=== PATIENT | male | born 1970 | race Caucasian/White ===

== ENCOUNTER 2022-05-24 09:53 | Emergency (ER) | payer BC, SELFPAY ==
--- NOTE | ~2022-05-24 | US_ITS ---
EXAMINATION: US venous doppler [facility] DATE: 05/24/2022 16:04 INDICATION: Bilateral lower limb pain TECHNIQUE: Diaz scale images without and with compression and Doppler images of the bilateral lower e xtremity veins were obtained. COMPARISON: None FINDINGS: The right common femoral vein, profunda femoral vein, femoral vein, popliteal vein, peroneal trunk, p osterior tibial veins, and greater saphenous vein are patent. The left common femoral vein, profunda femoral vein, femoral vein, popliteal vein, peroneal trunk, po sterior tibial veins, and greater saphenous vein are patent. IMPRESSION: 1. Patent bilateral lower extremity veins. No evidence of deep venous thrombosis. Reviewed, dictated and finalized at location F. IMPRESSION: 1. Patent bilateral lower extremity veins. No evidence of deep venous thrombosi s.
--- NOTE | ~2022-05-24 | CT_ITS ---
EXAMINATION: CTA chest PE protocol DATE: 05/24/2022 14:43 INDICATION: Shortness of breath TECHNIQUE: Computed tomography angiography (CTA) of the chest was performed with 100 mL Omnipaque-350 intravenous contrast timed to evaluate the pulmonary arteries. Coronal maximum intensity projection 3D-reconstructions were created by the technologist. The dose-length product (DLP) was 656.93 mGy-cm. Automated exposure control and iterative reconstruction technique were employed. COMPARISON: None. FINDINGS: The pulmonary arteries are well-opacified. No pulmonary embolism is identified. There is mi ld atelectasis in the right middle lobe and lingula. No pleural effusion or pneumothorax. No patholog ically enlarged thoracic lymph nodes are identified. The heart size is normal. There is mild thoracic spondylosis. IMPRESSION: 1. No pulmonary embolism. 2. Mild atelectasis in the lingula and right middle lobe. Reviewed, dictated and finalized at location F.
--- NOTE | ~2022-05-24 | XR_ITS ---
EXAMINATION: XR chest 2V DATE: 05/24/2022 11:35 INDICATION: One week of cough TECHNIQUE: PA and lateral views of the chest were obtained. COMPARISON: Chest radiograph dated 03/23/2011 FINDINGS: The lungs remain clear with no focal airspace opacities, pulmonary edema, pleural effusion or pneumot horax. The cardiomediastinal silhouette is normal. Chronic mild anterior wedging of a few mid and low er thoracic vertebral bodies. IMPRESSION: 1. No acute cardiopulmonary disease. Reviewed, dictated and finalized at location A.
[2022-05-24 09:56] VITALS: BP 104/52; PULSE 87; RESP 14; TEMP 36.4; O2SAT 98
[2022-05-24 11:03] VITALS: BP 104/52; PULSE 87; RESP 18; TEMP 36.4
--- NOTE | 2022-05-24 12:08 | ED.URI ---
HPI - URI/Sore Throat General Chief Complaint: Upper Respiratory Infection Stated Complaint: Cough, sinus problems. Time Seen by Provider: 05/24/22 11:12 History of Present Illness HPI Narrative: Patient is a 52-year-old male here for evaluation of upper respiratory infectious type symptoms for the past week. Patient states that he has been coughing, has had a sore throat, and developed some shortness of breath today. He denies any respiratory history. He has not yet taken a COVID test. No fevers, chills, nausea, vomiting, leg swelling. He has a history of restless leg syndrome and anxiety, recently started clonidine for restless leg. Related Data Home Medications Medication Instructions Recorded Confirmed psyllium husk 3.4 gram/5.4 gram 1 tbsp PO BID 07/03/19 01/10/20 oral powder (Metamucil) magnesium oxide 400 mg PO DAILY 12/13/19 01/10/20 famotidine 40 mg tablet (Pepcid) 40 mg PO DAILY 01/10/20 01/10/20 omeprazole 40 mg capsule,delayed 40 mg PO DAILY 01/10/20 01/10/20 release paroxetine HCl 20 mg tablet (Paxil) 20 mg PO DAILY 01/10/20 01/10/20 Allergies Allergy/AdvReac Type Severity Reaction Status Date / Time No Known Allergies Allergy Unverified 01/10/20 08:36 Review of Systems Review of Systems: Gen.: Denies fevers or chills Eyes: Denies eye pain or visual change ENT: Denies congestion Respiratory: Reports cough and shortness of breath CV: Denies chest pain or palpitations GI: Denies abdominal pain nausea, emesis or diarrhea denies burning, urgency, frequency or hematuria Musculoskeletal: Denies back pain or muscle pain Neuro: Denies numbness, tingling, weakness or focal weakness Skin: Denies rash Except as documented, all other systems reviewed and negative [facility] Past Medical History Medical History (Updated 05/24/22 @ 16:30 by Barbara Osman PA-C) Chest pain Fatigue Family History Family History Other Cerebrovascular accident Diabetes mellitus Family history of arthritis Hypertension Social History Social History Smoking status: Current every day smoker Second hand tobacco smoke exposure: Yes Alcohol intake: current Exam Narrative: APPEARANCE: Well appearing, no pain in distress, well-nourished. Head: Normocephalic and atraumatic. EYES: PERRLA/EOMI, conjunctivae clear NOSE: No nasal drainage EARS: External ear normal in appearance THROAT: Oropharynx is clear. Mucous membranes are moist. NECK: Supple. No adenopathy, no masses. RESPIRATORY: Airway patent, respirations nonlabored. Clear to auscultation bilaterally, no rales, rhonchi, wheezing. CARDIOVASCULAR: Regular rate and rhythm without murmurs, rubs, or gallops. ABDOMINAL: Normoactive bowel sounds. Soft, nontender, nondistended. No rebound tenderness or guarding. MUSCULOSKELETAL: Extremities are warm and well-perfused. Moves all extremities well. No edema. NEURO: Normal speech. No focal neurologic deficits. SKIN: Skin is warm and dry. No rashes. PSYCHIATRIC: Normal affect/mood.. Course Vital Signs Vital signs: Vital Signs Temperature 97.6 F 05/24/22 09:56 Pulse Rate 87 05/24/22 09:56 Respiratory Rate 14 05/24/22 09:56 Blood Pressure 104/52 L 05/24/22 09:56 Pulse Oximetry 98 05/24/22 09:56 Oxygen Delivery Room Air 05/24/22 09:56 Temperature 97.6 F 05/24/22 11:03 Pulse Rate 87 05/24/22 11:03 Respiratory Rate 18 05/24/22 11:03 Blood Pressure 104/52 L 05/24/22 11:03 Pulse Oximetry 98 05/24/22 09:56 Oxygen Delivery Room Air 05/24/22 11:49 MDM - URI/Sore Throat MDM Narrative Medical decision making narrative: 52-year-old male here for evaluation of upper respiratory type infection symptoms for the past several days. Here he is nontoxic-appearing, has normal vital signs, his heart and lungs are clear to auscultation. Work-up in the ED is largely
[2022-05-24 12:45] LABS: Basophils Percent Auto 0.2 % (0.2-1.2); Eosinophils Percent Auto 0.1 % (0-4.4); Hematocrit 40.2 % (42.0-52.0); Hemoglobin 13.4 g/dL (14.0-18.0); Immature Granulocyte Absolute 0.04 K/mm3 (0.00-0.031); Immature Granulocyte Percent A 0.4 % (0-0.5); Lymphocytes Absolute Auto 1.22 K/mm3 (0.9-3.2); Lymphocytes Percent Auto 12.6 % (18.3-44.2); Mean Corpuscular HGB Conc 33.3 g/dl (32-36); Mean Corpuscular Hemoglobin 29.3 pg (26-34); Mean Platelet Volume 11.9 fl (7.4-10.4); Monocytes Absolute Auto 0.4 K/mm3 (0.1-0.6); Monocytes Percent Auto 3.7 % (2.6-8.5); Platelet Count Result 168 k/mm3 (150-375); Red Blood Count 4.57 M/mm3 (4.6-6.20); Red Cell Distribution Width 13.7 % (11.5-14.5); White Blood Count 9.7 K/mm3 (4.5-10.0)
[2022-05-24 12:53] LABS: Alanine Aminotransferase 32 U/L (6-50); Albumin Level 4.8 g/dL (3.5-5.1); Alkaline Phosphatase 108 U/L (38-126); Anion Gap 17 mmol/L (8-16); Aspartate Amino Transferase 27 U/L (17-59); Bilirubin,Total 0.7 mg/dL (0.2-1.3); Blood Urea Nitrogen 16 mg/dL (9-20); Calcium 9.6 mg/dL (8.4-10.2); Carbon Dioxide 23 mmol/L (22-30); Chloride 101 mmol/L (98-107); Estimated Glomerular Filt Rate > 60; Glucose 131 mg/dL (65-110); Potassium 4.1 mmol/L (3.4-5.0); Sodium 141 mmol/L (137-145)
[2022-05-24 13:21] LABS: Influenza A QL RT-PCR Negative (Negative); Influenza B QL RT-PCR Negative (Negative); SARS-CoV-2 RNA PCR Negative
[2022-05-24 13:35] LABS: Prothrombin Time 12.8 Seconds (11.1-14.7)
[2022-05-24 13:36] LABS: Partial Thromboplastin Time 27.3 SECONDS (22.3-36.8)
== END 2022-05-24 16:49 | disposition home or self-care (01) ==
PROVIDERS: Physician Assistant; Emergency Provider Emergency Medicine; PCP Physician Assistant
DX: J06.9 Acute upper respiratory infection, unspecified (principal); Z20.822 Contact with and (suspected) exposure to COVID-19; G25.81 Restless legs syndrome; F41.9 Anxiety disorder, unspecified; F17.200 Nicotine dependence, unspecified, uncomplicated
CPT/HCPCS: 36415; 71046; 71275; 80053; 85025; 85380; 85610; 85730; 87502; 93970; 99284; C9803; Q9967; U0003; U0005

== ENCOUNTER 2023-08-08 22:38 | Emergency (ER) | payer BC, SELFPAY ==
[2023-08-08 22:39] VITALS: BP 117/56; PULSE 76; RESP 18; TEMP 36.4; O2SAT 100
--- NOTE | 2023-08-09 00:03 | PC.NURSE ---
Patient walked up to triage desk and advised he was leaving
== END 2023-08-09 00:40 | disposition left against medical advice (07) ==
LOC: ANHED 08-09 00:12
PROVIDERS: PCP Physician Assistant
DX: R06.02 Shortness of breath (principal)
CPT/HCPCS: 99199